=== PATIENT | male | born 1945 | race Caucasian/White ===

== ENCOUNTER 2022-03-19 18:18 | Inpatient (IN) | payer MEDICARE ==
[~2022-03-19] VITALS: Ht 170.2 cm; Wt 63.5 kg
[~2022-03-19 18:18] MED LIST: BACTRIM PO; CVS CALCIUM; DEXILANT60 MG PO; ERYTHROMYCIN500 MG PO; GOLYTELY; IBUPROFEN800 MG PO; NEOMYCIN SULFA500 MG PO; PHENERGAN25 MG/1 ML PO; VALSARTAN PO; VITAMIN B; Z.0.OMEPRAZOLE40 MG PO; Z.0.SOMA350 MG PO; Z.0.VASOTEC20 MG PO; Z.3.CENTRUM SILVER1; [UNRECOGNIZED DRUG - OTHER]; [UNRECOGNIZED DRUG - OTHER]
[2022-03-19 19:34] LABS: BASOPHILS # (AUTO) 0.1 (0.0-0.1); BASOPHILS % 0.6 % (0.0-1.0); EOSINOPHILS # (AUTO) 0.1 (0.0-0.4); EOSINOPHILS % 0.8 % (0.0-6.0); HEMATOCRIT 24.5 % (38.2-49.6); HEMOGLOBIN 7.7 g/dL (14.0-18.0); LYMPHOCYTES # (AUTO) 2.1 (1.0-3.2); LYMPHOCYTES % 11.4 % (18.0-39.1); MEAN CORPUSCULAR HEMOGLOBIN 25.5 pg (28-32); MEAN CORPUSCULAR HGB CONC 31.4 g/dL (31-35); MEAN CORPUSCULAR VOLUME 81.1 fL (81-99); MONOCYTES # (AUTO) 1.5 (0.2-0.8); MONOCYTES % 8.2 % (4.4-11.3); NEUTROPHILS # (AUTO) 14.5 (2.1-6.9); PLATELET COUNT 709 x10e3/uL (140-360); RED BLOOD COUNT 3.02 x10e6/uL (4.3-5.7); RED CELL DISTRIBUTION WIDTH 18.3 % (11.7-14.4)
[2022-03-19 19:40] LABS: INR 1.3; PROTHROMBIN TIME 17.3 seconds (11.9-14.5)
[2022-03-19 19:42] LABS: PARTIAL THROMBOPLASTIN TIME 43.9 seconds (23.8-35.5)
[2022-03-19] MEDS ORDERED: ACETAMINOPHEN 1000 MG/100 ML IV STA (19:43)
[2022-03-19] MEDS ORDERED: SODIUM CHLORIDE 0.9% 1000ML 1,000 ML IV ONE ×2 (19:45→21:45)
[2022-03-19 19:52] LABS: ALBUMIN 1.4 g/dL (3.5-5.0); ALBUMIN/GLOBULIN RATIO 0.3 (0.8-2.0); ANION GAP 14.9 mmol/L (8-16); CALCIUM 8.9 mg/dL (8.4-10.2); CREATININE, SERUM 0.55 mg/dL (0.72-1.25); POTASSIUM 4.9 mmol/L (3.5-5.1)
[2022-03-19 20:14] LABS: CLARITY,URINE SL CLOUDY (CLEAR); COLOR,URINE YELLOW (YELLOW); KETONES,URINE NEGATIVE (NEGATIVE); LEUKOCYTE ESTERASE ,URINE NEGATIVE (NEGATIVE); NITRITE,URINE NEGATIVE (NEGATIVE); PROTEIN,URINE DIPSTICK TRACE (NEGATIVE); URINE UROBILINOGEN 4 mg/dL (0.2 - 1)
[2022-03-19 20:28] LABS: BACTERIA,URINE FEW /HPF; EPITHELIAL CELLS,URINE FEW /LPF; RBC,URINE 0-5 /HPF (0-5); WBC,URINE (MAN) 0-5 /HPF (0-5)
[2022-03-19] MEDS ORDERED: ACETAMINOPHEN 1000 MG/100 ML IV PRN (22:00)
[2022-03-19] MEDS: ALBUTEROL SULF 0.083% NEB SOLN 3 ML NEB NEB SCH (22:00)
[2022-03-19 22:28] LABS: CREATINE KINASE MB 1.6 ng/mL (0-5.0)
[2022-03-19] MEDS: SODIUM CHLORIDE 0.9% 1000ML 1,000 ML IV SCH (23:50)
[2022-03-20] MEDS: ALBUTEROL SULF 0.083% NEB SOLN 3 ML NEB NEB SCH ×6 (00:15→20:20)
[2022-03-20] MEDS: IPRATROPIUM BROMIDE 0.02% 2.5 ML NEB NEB SCH ×4 (01:45→20:20)
[2022-03-20 04:26] LABS: CREATINE KINASE MB 1.3 ng/mL (0-5.0)
[2022-03-20] MEDS: SODIUM CHLORIDE 0.9% 1000ML 1,000 ML IV SCH ×3 (05:54→22:30)
[2022-03-20] MEDS ORDERED: ALLOPURINOL100 MG PEG (11:39)
[2022-03-20] MEDS ORDERED: GLUCERNA 1.2 C237 ML PEG (11:39)
[2022-03-20] MEDS ORDERED: AMIODARONE HCL200 MG PEG (11:40)
[2022-03-20] MEDS ORDERED: ASPIRIN CHEW81 MG PEG (11:40)
[2022-03-20] MEDS ORDERED: ATORVASTATIN CA20 MG PEG (11:41)
[2022-03-20] MEDS ORDERED: FAMOTIDINE20 MG PEG (11:42)
[2022-03-20] MEDS ORDERED: LEVETIRACETAM500 MG PEG (11:43)
[2022-03-20] MEDS ORDERED: LEVOTHYROXINE88 MCG PEG (11:44)
[2022-03-20] MEDS ORDERED: METOPROLOL TART25 MG PO (11:45)
[2022-03-20] MEDS ORDERED: METHOCARBAMOL500 MG PEG (11:45)
[2022-03-20] MEDS ORDERED: HYDROCODON-ACE1 EA11 PO (11:47)
[2022-03-20] MEDS ORDERED: ONDANSETRON ODT4 MG PO (11:48)
[2022-03-20] MEDS ORDERED: ELIQUIS2.5 MG PEG (11:49)
[2022-03-20] MEDS ORDERED: ACETAMINOPHEN325 M1 PEG (11:49)
[2022-03-20] MEDS ORDERED: GOLYTELY SCH (12:00)
[2022-03-20] MEDS ORDERED: PROMETHAZINE HCL 25 MG PO SCH (12:00)
[2022-03-20 12:15] LABS: CREATINE KINASE MB 1.3 ng/mL (0-5.0)
[2022-03-20] MEDS: HYDROCODONE/APAP 5MG-325MG TAB PO SCH ×2 (12:29→18:13)
[2022-03-20] MEDS: METOPROLOL TARTRATE 25 MG TAB PO SCH ×2 (12:29→18:00)
[2022-03-20] MEDS ORDERED: FENTANYL 25 MCG/HR PATCH TOP SCH (13:00)
[2022-03-20] MEDS ORDERED: DIATRIZOATE MEGL/DIATRIZOA SOD 30 ML BTL PO ONE (14:26)
[2022-03-20] MEDS: CARISOPRODOL 350 MG TAB PO SCH ×2 (15:23→22:38)
[2022-03-20] MEDS: ONDANSETRON HCL 4 MG ORAL DISINTEGRATING TAB PO SCH ×2 (15:23→22:38)
[2022-03-20] MEDS: VALSARTAN 160 MG TAB PO SCH (17:00)
[2022-03-20] MEDS ORDERED: VALSARTAN 160 MG PO SCH (17:00)
[2022-03-20] MEDS: LEVETIRACETAM ORAL SOLUTION 500 MG/5 ML SOLN PEG SCH (18:13)
[2022-03-20] MEDS: APIXAB 2.5 MG TABLET GT SCH (18:13)
[2022-03-20] MEDS: FAMOTIDINE 20 MG TAB PEG SCH (18:13)
[2022-03-20] MEDS: PANTOPRAZOLE SOD 40 MG TABEC PO SCH (18:13)
[2022-03-20 18:41] VITALS: BP 94/59
[2022-03-20 20:00] VITALS: BP 102/79
[2022-03-20] MEDS: ATORVASTATIN 20 MG TAB PEG SCH (22:37)
[2022-03-21] VITALS (7 sets, daily range): BP systolic 91–123; BP diastolic 53–82
[2022-03-21] MEDS: METOPROLOL TARTRATE 25 MG TAB PO SCH ×4 (01:37→17:36)
[2022-03-21] MEDS: HYDROCODONE/APAP 5MG-325MG TAB PO SCH ×4 (01:37→17:37)
[2022-03-21] MEDS: IPRATROPIUM BROMIDE 0.02% 2.5 ML NEB NEB SCH ×5 (03:40→23:55)
[2022-03-21] MEDS: ALBUTEROL SULF 0.083% NEB SOLN 3 ML NEB NEB SCH ×6 (03:40→23:55)
[2022-03-21] MEDS: SODIUM CHLORIDE 0.9% 1000ML 1,000 ML IV SCH ×3 (04:58→21:11)
[2022-03-21 05:56] LABS: BASOPHILS # (AUTO) 0.1 (0.0-0.1); BASOPHILS % 0.5 % (0.0-1.0); EOSINOPHILS # (AUTO) 0.3 (0.0-0.4); EOSINOPHILS % 1.5 % (0.0-6.0); LYMPHOCYTES # (AUTO) 1.8 (1.0-3.2); LYMPHOCYTES % 10.8 % (18.0-39.1); MEAN CORPUSCULAR HGB CONC 30.2 g/dL (31-35); MEAN CORPUSCULAR VOLUME 82.8 fL (81-99); MONOCYTES # (AUTO) 1.6 (0.2-0.8); MONOCYTES % 9.8 % (4.4-11.3); NEUTROPHILS # (AUTO) 12.7 (2.1-6.9); PLATELET COUNT 678 x10e3/uL (140-360); RED BLOOD COUNT 2.32 x10e6/uL (4.3-5.7); RED CELL DISTRIBUTION WIDTH 17.9 % (11.7-14.4)
[2022-03-21] MEDS: LEVOTHYROXINE SODIUM 88 MCG TAB PEG SCH (06:00)
[2022-03-21 06:05] LABS: HEMATOCRIT 19.2 % (38.2-49.6); HEMOGLOBIN 5.8 g/dL (14.0-18.0)
[2022-03-21 06:22] LABS: ANION GAP 16.4 mmol/L (8-16); CALCIUM 8.5 mg/dL (8.4-10.2); CREATININE, SERUM 0.55 mg/dL (0.72-1.25); POTASSIUM 4.4 mmol/L (3.5-5.1)
[2022-03-21] MEDS ORDERED: SODIUM CHLORIDE 0.9% 250ML 250 ML IV ONE (06:30)
[2022-03-21] MEDS: ONDANSETRON HCL 4 MG ORAL DISINTEGRATING TAB PO SCH ×3 (07:30→21:18)
[2022-03-21] MEDS: CARISOPRODOL 350 MG TAB PO SCH ×3 (07:30→21:18)
[2022-03-21] MEDS ORDERED: NON-FORMULARY MEDICATION (Omeprazole 40 MG) PO SCH (09:00)
[2022-03-21] MEDS ORDERED: SODIUM CHLORIDE 0.9% 250ML 250 ML ONE (09:26)
[2022-03-21] MEDS: LEVETIRACETAM ORAL SOLUTION 500 MG/5 ML SOLN PEG SCH ×2 (10:02→17:37)
[2022-03-21] MEDS: APIXAB 2.5 MG TABLET GT SCH ×2 (10:02→17:37)
[2022-03-21] MEDS: ALLOPURINOL 100 MG TAB PEG SCH (10:02)
[2022-03-21] MEDS: FAMOTIDINE 20 MG TAB PEG SCH ×2 (10:03→17:37)
[2022-03-21] MEDS: ASPIRIN 81 MG CHEW TAB PEG SCH (10:03)
[2022-03-21] MEDS: PANTOPRAZOLE SOD 40 MG TABEC PO SCH ×2 (10:03→17:37)
[2022-03-21] MEDS: VALSARTAN 160 MG TAB PO SCH ×2 (10:03→17:00)
[2022-03-21] MEDS: AMIODARONE HCL 200 MG TAB PEG SCH (10:04)
[2022-03-21 19:48] LABS: HEMATOCRIT 22.9 % (38.2-49.6)
[2022-03-21 19:51] LABS: HEMOGLOBIN 6.7 g/dL (14.0-18.0)
[2022-03-21] MEDS: ATORVASTATIN 20 MG TAB PEG SCH (21:18)
[2022-03-22] VITALS: BP 112/63
[2022-03-22] MEDS: ALBUTEROL SULF 0.083% NEB SOLN 3 ML NEB NEB SCH ×5 (02:40→19:49)
[2022-03-22] MEDS: CARISOPRODOL 350 MG TAB PO SCH ×2 (05:56→14:25)
[2022-03-22] MEDS: SODIUM CHLORIDE 0.9% 1000ML 1,000 ML IV SCH ×2 (05:56→14:02)
[2022-03-22] MEDS: HYDROCODONE/APAP 5MG-325MG TAB PO SCH ×4 (05:56→17:17)
[2022-03-22] MEDS: LEVOTHYROXINE SODIUM 88 MCG TAB PEG SCH (05:56)
[2022-03-22] MEDS: ONDANSETRON HCL 4 MG ORAL DISINTEGRATING TAB PO SCH ×2 (05:56→14:25)
[2022-03-22] MEDS: METOPROLOL TARTRATE 25 MG TAB PO SCH ×4 (06:00→17:17)
[2022-03-22] MEDS: IPRATROPIUM BROMIDE 0.02% 2.5 ML NEB NEB SCH ×3 (06:10→19:49)
[2022-03-22 08:10] VITALS: BP 96/55
[2022-03-22] MEDS ORDERED: COLLAGENASE 5 GM TUBE TOP SCH (09:00)
[2022-03-22] MEDS ORDERED: BALSAM PERU/CASTOR OIL 60 GM OINT...G. TP SCH (09:00)
[2022-03-22] MEDS: VALSARTAN 160 MG TAB PO SCH ×2 (09:00→17:18)
[2022-03-22 09:04] LABS: HEMATOCRIT 24.8 % (38.2-49.6)
[2022-03-22] MEDS: LEVETIRACETAM ORAL SOLUTION 500 MG/5 ML SOLN PEG SCH ×2 (09:10→17:16)
[2022-03-22] MEDS: PANTOPRAZOLE SOD 40 MG TABEC PO SCH ×2 (09:11→17:18)
[2022-03-22] MEDS: APIXAB 2.5 MG TABLET GT SCH ×2 (09:11→17:17)
[2022-03-22] MEDS: ALLOPURINOL 100 MG TAB PEG SCH (09:11)
[2022-03-22] MEDS: AMIODARONE HCL 200 MG TAB PEG SCH (09:11)
[2022-03-22] MEDS: ASPIRIN 81 MG CHEW TAB PEG SCH (09:11)
[2022-03-22] MEDS: FAMOTIDINE 20 MG TAB PEG SCH ×2 (09:11→17:17)
[2022-03-22 09:26] VITALS: BP 96/55
[2022-03-22 12:00] VITALS: BP 93/58
[2022-03-22 16:00] VITALS: BP 108/60
[2022-03-22 19:10] VITALS: BP 127/85
== END 2022-03-22 21:15 | DRG 871 ==
LOC: ER 19:15 → ERHOLD 21:57 → MED/SURG2 03-20 16:41 → OBSVTOIN 03-20 17:24
PROC: 3E03329 Introduction of Other Anti-infective into Peripheral Vein, Percutaneous Approach (ICD-10-PCS; 2022-03-19)
PROC: 30233N1 Transfusion of Nonautologous Red Blood Cells into Peripheral Vein, Percutaneous Approach (ICD-10-PCS; principal; 2022-03-21)
DX: A41.9 Sepsis, unspecified organism (principal); G93.41 Metabolic encephalopathy; J18.9 Pneumonia, unspecified organism; R65.21 Severe sepsis with septic shock; N39.0 Urinary tract infection, site not specified; I48.11 Longstanding persistent atrial fibrillation; I48.20 Chronic atrial fibrillation, unspecified; E84.8 Cystic fibrosis with other manifestations; R65.20 Severe sepsis without septic shock; L89.110 Pressure ulcer of right upper back, unstageable; S30.0XXA Contusion of lower back and pelvis, initial encounter; K21.9 Gastro-esophageal reflux disease without esophagitis; I25.10 Atherosclerotic heart disease of native coronary artery without angina pectoris; Z74.01 Bed confinement status; Z93.1 Gastrostomy status; D64.9 Anemia, unspecified; Z66 Do not resuscitate; Z79.01 Long term (current) use of anticoagulants; Z20.822 Contact with and (suspected) exposure to COVID-19; G89.4 Chronic pain syndrome; M10.9 Gout, unspecified; E03.9 Hypothyroidism, unspecified; I69.320 Aphasia following cerebral infarction
CPT/HCPCS: 36415; 71045; 74018; 80048; 80053; 81001; 82550; 82553; 82948; 83605; 84484; 85014; 85018; 85025; 85610; 85730; 86850; 86900; 86920; 87040; 87071; 87086; 87205; 93005; 94799; 96361; 99251; 99284; G0378; J0456; J0692; J7030; J7050; P9016; Q0162; Q9963